=== PATIENT | female | born 1995 | race Caucasian/White ===

== ENCOUNTER 2017-09-18 09:33 | Emergency (ER) | payer OTHER, SELFPAY ==
[2017-09-18 09:56] LABS: Bilirubin Negative (Negative); Blood, Urine Negative (Negative); Glucose, Urine (Dipstick) Negative (Negative); Ketone, Urine Negative (Negative); Nitrite Negative (Negative); Protein, Urine (Dipstick) Negative (Neg-Trace); Urobilinogen 0.2 mg/dL (0.2-1.0)
== END 2017-09-18 13:17 | disposition home or self-care (01) ==
LOC: ERS 09:33
DX: K59.00 Constipation, unspecified (principal); Z32.02 Encounter for pregnancy test, result negative; Z71.6 Tobacco abuse counseling; F17.210 Nicotine dependence, cigarettes, uncomplicated
CPT/HCPCS: 81003; 81025; 99406

== ENCOUNTER 2018-03-26 19:59 | Emergency (ER) | payer SELFPAY ==
[2018-03-26] MEDS ORDERED: Dexamethasone 4 mg/ml Vial ONE (21:28)
[2018-03-26] MEDS ORDERED: Metoclopramide HCl 10 MG/2 ML VIAL ONE (21:28)
[2018-03-26] MEDS ORDERED: Ketorolac Tromethamine 30 MG/ML VIAL ONE (21:28)
[2018-03-26] MEDS ORDERED: diphenhydrAMINE 50 MG/ML VIAL ONE (21:33)
== END 2018-03-26 23:01 | disposition home or self-care (01) ==
LOC: ERS 19:59
DX: R51 Headache (principal); F17.210 Nicotine dependence, cigarettes, uncomplicated
CPT/HCPCS: 96365; 96375; J1100; J1200; J1885; J2765

== ENCOUNTER 2018-06-13 12:58 | Inpatient (IN) | payer SELFPAY ==
[~2018-06-13 12:58] MED LIST: ISOVUE-370 76%-LOCM 1 ML ONE
[2018-06-13 13:28] LABS: #Eosinphils 0.5 thou/uL (0.0-0.7); #Monocytes 1.2 thou/uL (0.11-0.59); #Neutrophils 11.9 thou/uL (1.40-6.50); %Basophils 0.2 % (0.0-1.0); %Eosinophils 2.9 % (0.0-10.0); %Lymphocytes 12.6 % (21.0-51.0); %Monocytes 7.6 % (0.0-10.0); %Neutrophils 76.7 % (42.0-75.0); Hemoglobin 13.7 g/dL (12.0-16.0); Mean Corpuscular HGB CONC 32.3 g/dL (32.0-36.0); Mean Corpuscular Hemoglobin 27.3 pg (27.0-31.0); Mean Corpuscular Volume 84.7 fL (78.0-98.0); Mean Platelet Volume 6.9 fL (7.4-10.4); Platelet Count 386 thou/uL (130-400); RBC Distribution Width 12.9 % (11.5-14.5); Red Blood Cell (RBC) Count 5.03 mill/uL (4.20-5.40); White Blood Cell (WBC) Count 15.5 thou/uL (4.8-10.8)
[2018-06-13] MEDS ORDERED: methylPREDNISolone Sod Succ/PF 125 MG/2 ML VIAL ONE (13:30)
[2018-06-13 13:41] LABS: ALT (SGPT) 41 U/L (8-55); AST (SGOT) 24 U/L (5-34); Alkaline Phosphatase 107 U/L (40-150); Anion Gap 12 mmol/L (10-20); BUN (Urea Nitrogen) 9 mg/dL (7.0-18.7); Bilirubin, Total 0.2 mg/dL (0.2-1.2); CK (CPK) 71 U/L (29-168); Calc. Creatinine Clearance 0 mL/min (70-130); Calcium 9.5 mg/dL (7.8-10.44); Carbon Dioxide 25 mmol/L (22-29); Chloride 105 mmol/L (98-107); Estimated GFR-MDRD Greater than 90; Globulin 3.8 g/dL (2.4-3.5); Glucose 107 mg/dL (70-105); Potassium 4.1 mmol/L (3.5-5.1); Protein, Total 7.8 g/dL (6.0-8.3); Sodium 138 mmol/L (136-145)
[2018-06-13 13:46] LABS: CKMB 1.1 ng/mL (0-6.6); Troponin I Less than 0.010 ng/mL (< 0.028)
[2018-06-13] MEDS ORDERED: Azithromycin 500 MG VIAL ONE (14:15)
[2018-06-13 14:23] LABS: HIV (1/2) Antibody/Antigen Non-Reactive (NonReactive); HIV 1/2 INDEX 0.06 S/CO (<1.00)
[2018-06-13 14:42] LABS: BHCG - Serum Negative (NEGATIVE); Pregs Control Background? CLEAR/WHITE (CLR/WHITE); Pregs Control Bar Appear? YES (CONTROL BAR)
--- NOTE | 2018-06-13 14:48 | RAD ---
PORTABLE CHEST: HISTORY: Cough. FINDINGS: Evaluation of the lungs is limited due to poor inspiration and soft tissue attenuation. The lungs ap pear clear as visualized. Cardiomediastinum unremarkable. IMPRESSION: No acute process seen on portable exam. POS: [facility]
[2018-06-13] MEDS ORDERED: cefTRIAXone\\ROCEPHIN 1 GM VIAL ONE (15:46)
--- NOTE | 2018-06-13 15:47 | CT ---
CT ANGIOGRAM OF THE CHEST 06/13/18 HISTORY: Elevated D-dimer. Shortness of breath. Chest pain. Patient does smoke. COMPARISON: None. TECHNIQUE: CT angiogram of the chest is performed in the axial plane. Three dimensional reformatted images are s ubmitted for interpretation. FINDINGS: Patchy interstitial and alveolar opacities in the left upper lobe, medial left lower lobe. Adequate a eration without evidence of consolidation in the right lung. Nonspecific linear opacity and nodule in the right lung apex. The nodule component measures 6 mm. Trachea and central bronchi are patent. No pleural effusion or pneumothorax. No mediastinal mass, lymphadenopathy, or hematoma. Heart size is within normal limits. No pericardial effusion. The descending thoracic aorta and abdominal aorta have a normal caliber. No periaortic fat stranding. The visualized upper solid organs are unremarkable. Suboptimal evaluation of the pulmonary arterial system due to poor timing of contrast bolus and due t o motion degradation. No evidence of a central filling defect to suggest thromboembolism. Evaluation of the lobar, segmental and subsegmental arteries is markedly limited. IMPRESSION: 1. Markedly limited evaluation due to timing of bolus as well as motion degradation. No obvious central PE. 2. Limited evaluation of the aorta. Overall caliber is within normal limits. No evidence of eveline aortic fat stranding. 3. Patchy opacities in the left lung which may represent areas of infiltrates. Continued surveil sammie is recommended. 4. 6 mm nodule opacity in the right upper lobe. Followup CT in one year. POS: [facility]
[2018-06-13] MEDS ORDERED: Acetaminophen 650 MG Suppository PR PRN (18:08)
[2018-06-13] MEDS ORDERED: Bisacodyl 5 MG TAB PO PRN (18:08)
[2018-06-13] MEDS ORDERED: Ondansetron HCl/PF 4 MG/2 ML Vial IVP PRN (18:24)
[2018-06-13] MEDS ORDERED: Sodium Chloride 0.9% 1,000 ML IV SCH (18:24)
[2018-06-13] MEDS ORDERED: Ondansetron ODT 4 MG TAB SL PRN (18:24)
[2018-06-13] MEDS: Acetaminophen 325 MG TAB PO PRN (18:35)
--- NOTE | 2018-06-13 19:01 | HP ---
PRIMARY CARE PROVIDER: None. CHIEF COMPLAINT: Shortness of breath. HISTORY OF PRESENT ILLNESS: Ms. Elena is a pleasant 23-year-old lady who was seen at [facility] on 06/13/2018. She reports that she has no medical problems. She denies any sick contacts. She developed shortness of breath last night. The shortness of breath was accompanied by cough. The cough is productive of yellow sputum. She felt feverish at home. She also reports nausea at home. She denies any vomitin g or diarrhea. She also reports pain over her left upper back, but is unable to characterize it furt her. REVIEW OF SYSTEMS: All other systems reviewed and found to be negative. PAST MEDICAL HISTORY: None. PAST SURGICAL HISTORY: None. SOCIAL HISTORY: The patient denies alcohol use or recreational drug use. She smokes half a pack of cigarettes a day. FAMILY HISTORY: Myocardial infarction in her father in his 50s. ALLERGIES: No known drug allergies. CURRENT MEDICATIONS: None. PHYSICAL EXAMINATION: GENERAL: On examination, Ms. Elena is awake and alert, not in acute distress. She is obese. VITAL SIGNS: Blood pressure is 129/92, pulse 128, respiratory rate 17 and oxygen saturation 95% on r oom air. T-max in the emergency room was 101.3 degrees Fahrenheit. EYES: No scleral icterus. No conjunctival pallor. ENT: Moist mucosal membranes, no oropharyngeal erythema or exudates. NECK: Supple, nontender, trachea is midline. RESPIRATORY: Accessory muscles of breathing are not active. Chest wall movements are symmetric bila terally. LUNGS: Examination reveals left-sided bronchial breathing. CARDIOVASCULAR: S1 and S2 are heard, tachycardic and regular. Peripheral pulses palpable. No carot id bruit, no pericardial rub. ABDOMEN: Soft, nontender, bowel sounds are heard, no hepatomegaly, no splenomegaly. NEUROLOGIC: Cranial nerves II-XII are intact. Deep tendon reflexes are 2+. MUSCULOSKELETAL: Power is 5/5 in all 4 extremities. SKIN: No rashes or subcutaneous nodules. LYMPHATIC: No cervical lymphadenopathy. PSYCHIATRIC: Normal mood, normal affect, patient is oriented to person, place, and time. IMAGING DATA AND LABORATORY DATA: Ms. Elena's labs and investigations were reviewed. I reviewed her electrocardiogram, which shows sinus tachycardia, no ST changes to suggest an acute coronary syndrome . I also reviewed her chest x-ray, which does not show any pulmonary infiltrates. She also had CT a ngiogram of the chest, which was a suboptimal study. There was no evidence of a central filling defe ct. She also had patchy opacities in the left lung which may represent areas of infiltrates. She al so has a 6 mm nodular opacity in the right lower lobe. Radiologist recommends follow up CT in 1 year . She has leukocytosis with 15,500 white cells, of which 76.7% are neutrophils, normal hemoglobin an d normal platelet count, elevated D-dimer of 0.49, unremarkable comprehensive metabolic profile, norm al troponin I, negative serum test and nonreactive HIV 1 and 2 antigen and antibody. ASSESSMENT AND PLAN: Mr. Elena is a pleasant 23-year-old lady who was seen at [facility] on 06/13/2018. Her problem list includes: 1. Sepsis: Ms. Elena is presenting with sepsis, most likely secondary to pneumonia. She will be adm itted to the hospital for further management including intravenous fluids and antibiotics. 2. Pneumonia: She will be treated with intravenous ceftriaxone and azithromycin. I will follow blo od cultures and adjust antibiotics as needed. 3. Sinus tachycardia: No evidence of pulmonary embolism, most likely secondary to sepsis. We will continue to monitor vital signs. 4. Tobacco use: The patient has been counseled regarding tobacco cessation. She declined nicotine replacement therapy. LEVEL OF RISK: High. LEVEL OF COMPLEXITY: High.
[2018-06-13 19:02] VITALS: BMI 64.0
[2018-06-13] MEDS ORDERED: diphenhydrAMINE 25 MG CAP PO PRN (22:03)
[2018-06-13] MEDS: Sodium Chloride 0.9% 1,000 ML IV SCH (22:20)
[2018-06-14 06:05] LABS: #Eosinphils 0.1 thou/uL (0.0-0.7); #Lymphocytes 1.4 thou/uL (1.20-3.40); #Monocytes 0.9 thou/uL (0.11-0.59); #Neutrophils 12.8 thou/uL (1.40-6.50); %Basophils 0.1 % (0.0-1.0); %Eosinophils 0.6 % (0.0-10.0); %Lymphocytes 9.3 % (21.0-51.0); %Monocytes 6.1 % (0.0-10.0); Hemoglobin 13.4 g/dL (12.0-16.0); Mean Corpuscular HGB CONC 31.8 g/dL (32.0-36.0); Mean Corpuscular Hemoglobin 26.8 pg (27.0-31.0); Mean Corpuscular Volume 84.2 fL (78.0-98.0); Mean Platelet Volume 6.8 fL (7.4-10.4); Platelet Count 339 thou/uL (130-400); RBC Distribution Width 13.5 % (11.5-14.5); Red Blood Cell (RBC) Count 5.01 mill/uL (4.20-5.40); White Blood Cell (WBC) Count 15.3 thou/uL (4.8-10.8)
[2018-06-14 06:13] LABS: Anion Gap 11 mmol/L (10-20); BUN (Urea Nitrogen) 9 mg/dL (7.0-18.7); Calc. Creatinine Clearance 275 mL/min (70-130); Calcium 9.3 mg/dL (7.8-10.44); Carbon Dioxide 24 mmol/L (22-29); Chloride 109 mmol/L (98-107); Estimated GFR-MDRD Greater than 90; Glucose 194 mg/dL (70-105); Potassium 4.3 mmol/L (3.5-5.1); Sodium 140 mmol/L (136-145)
[2018-06-14] MEDS: Sodium Chloride 0.9% 1,000 ML IV SCH ×3 (06:30→23:36)
[2018-06-14] MEDS: Benzonatate 100 MG CAP PO PRN ×3 (08:30→21:49)
[2018-06-14] MEDS: Enoxaparin Sodium 40 MG/0.4 ML SYRINGE SC SCH (08:31)
--- NOTE | 2018-06-14 12:59 | PDOC.PN ---
- Subjective Encounter Start Date: 06/14/18 Encounter Start Time: 07:20 Pt seen for followup re: pneumonia. Reports cough, sputum. - Objective MAR Reviewed: Yes Vital Signs & Weight: Vital Signs (12 hours) Temp Pulse Resp BP BP Pulse Ox 06/14/18 11:30 98.1 F 103 H 22 H 142/94 H 97 06/14/18 09:09 95 06/14/18 09:07 109 H 40 H 06/14/18 07:45 98.2 F 106 H 24 H 140/91 H 96 06/14/18 04:00 98.4 F 110 H 22 H 169/98 H 94 L Weight Weight 327 lb 9.6 oz I&O: 06/13/18 06/14/18 06/15/18 06:59 06:59 06:59 Intake Total 1187 Output Total 400 Balance 787 Result Diagrams: 06/14/18 05:42 06/14/18 05:42 EKG Reviewed by me: Yes (Tele: sinus tachycardia) Phys Exam - Physical Examination morbid obesity HEENT: moist MMs, sclera anicteric, oral pharynx no lesions, 2+ tonsils Neck: no nodes, no JVD, supple, full ROM Respiratory: no rales, no rhonchi, wheezing present, clear to auscultation bilateral Cardiovascular: no rub S1, S2, tachy, reg Gastrointestinal: soft, non-tender, positive bowel sounds distention Neurological: moves all 4 limbs Psychiatric: normal affect, A&O x 3 Dx/Plan (1) Pneumonia Code(s): J18.9 - PNEUMONIA, UNSPECIFIED ORGANISM Status: Acute Comment: Continue IV ceftriaxone, azithromycin and PRN DuoNebs. Add Tessalon. (2) Sinus tachycardia Code(s): R00.0 - TACHYCARDIA, UNSPECIFIED Status: Acute Comment: likely due to pneumonia/hypoxia. No large PE on CTA. Check TSH in AM. (3) Leucocytosis Code(s): D72.829 - ELEVATED WHITE BLOOD CELL COUNT, UNSPECIFIED Status: Acute Comment: Improving (4) Tobacco abuse Code(s): Z72.0 - TOBACCO USE Status: Chronic Comment: pt counseled re: tobacco cessation - Plan continue antibiotics, out of bed/ambulate, DVT proph w/lovenox * . Review of Systems - Review of Systems Constitutional: malaise. negative: fever, chills, sweats, weakness Respiratory: Cough, SOB with Excertion, Sputum. negative: Dry, Shortness of Breath, Hemoptysis, Pleuritic Pain, Wheezing Cardiovascular: negative: chest pain, palpitations, orthopnea, paroxysmal nocturnal dyspnea, edema, light headedness Gastrointestinal: negative: Nausea, Vomiting, Abdominal Pain, Diarrhea, Constipation, Melena, Hematochezia Genitourinary: negative: Dysuria, Frequency, Incontinence, Hematuria, Retention Skin: negative: Rash, Lesions, Stan, Bruising - Medications/Allergies Allergies/Adverse Reactions: Allergies Allergy/AdvReac Type Severity Reaction Status Date / Time No Known Drug Allergies Allergy Verified 06/13/18 20:39 Medications: Current Medications Acetaminophen (Tylenol) 650 mg PO Q4H PRN PRN Reason: Headache/Fever or Pain Last Admin: 06/13/18 18:35 Dose: 650 mg Acetaminophen (Tylenol) 650 mg RI Q4H PRN PRN Reason: Headache/Fever or Pain Albuterol/Ipratropium (Duoneb) 3 ml NEB Q4H PRN PRN Reason: SOB &/or Wheezing Last Admin: 06/14/18 09:07 Dose: 3 ml Benzonatate (Tessalon) 100 mg PO TID PRN PRN Reason: Cough Last Admin: 06/14/18 08:30 Dose: 100 mg Bisacodyl (Dulcolax) 10 mg PO DAILYPRN PRN PRN Reason: Constipation Diphenhydramine HCl (Benadryl) 50 mg PO HSPRN PRN PRN Reason: Itching & Insomnia Last Admin: 06/13/18 22:20 Dose: 50 mg Enoxaparin Sodium (Lovenox) 40 mg SC 09 [facility]LE Last Admin: 06/14/18 08:31 Dose: 40 mg Azithromycin 500 mg/ Sodium (Chloride) 250 mls @ 250 mls/hr IVPB Q24HR [facility] Ceftriaxone Sodium 1 gm/ (Sodium Chloride) 100 mls @ 200 mls/hr IVPB Q24HR [facility] Sodium Chloride (Normal Saline 0.9%) 1,000 mls @ 100 mls/hr IV .Q10H [facility] Last Admin: 06/14/18 06:47 Dose: 1,000 mls Sodium Chloride (Flush - Normal Saline) 10 ml IVF Q12HR [facility] Last Admin: 06/14/18 08:30 Dose: Not Given Sodium Chloride (Flush - Normal Saline) 10 ml IVF PRN PRN PRN Reason: Saline Flush
[2018-06-14] MEDS: Azithromycin 500 MG in Sodium Chloride 0.9% 250 ML 250 ML IVPB SCH (13:35)
[2018-06-14] MEDS ORDERED: cefTRIAXone\\ROCEPHIN 1 GM in Sodium Chloride 0.9% 100 ML IVPB SCH (16:00)
[2018-06-14] MEDS: Acetaminophen 325 MG TAB PO PRN (16:32)
[2018-06-15] MEDS: Acetaminophen 325 MG TAB PO PRN (04:44)
[2018-06-15 06:11] LABS: #Eosinphils 0.6 thou/uL (0.0-0.7); #Lymphocytes 2.6 thou/uL (1.20-3.40); #Monocytes 0.9 thou/uL (0.11-0.59); #Neutrophils 6.6 thou/uL (1.40-6.50); %Basophils 0.5 % (0.0-1.0); %Eosinophils 5.8 % (0.0-10.0); %Neutrophils 61.7 % (42.0-75.0); Hemoglobin 11.9 g/dL (12.0-16.0); Mean Corpuscular HGB CONC 31.7 g/dL (32.0-36.0); Mean Corpuscular Hemoglobin 27.1 pg (27.0-31.0); Mean Corpuscular Volume 85.5 fL (78.0-98.0); Mean Platelet Volume 6.7 fL (7.4-10.4); Platelet Count 315 thou/uL (130-400); RBC Distribution Width 13.3 % (11.5-14.5); White Blood Cell (WBC) Count 10.7 thou/uL (4.8-10.8)
[2018-06-15 06:21] LABS: Anion Gap 9 mmol/L (10-20); BUN (Urea Nitrogen) 10 mg/dL (7.0-18.7); Calc. Creatinine Clearance 290 mL/min (70-130); Calcium 8.5 mg/dL (7.8-10.44); Carbon Dioxide 26 mmol/L (22-29); Chloride 107 mmol/L (98-107); Estimated GFR-MDRD Greater than 90; Glucose 102 mg/dL (70-105); Potassium 4.2 mmol/L (3.5-5.1); Sodium 138 mmol/L (136-145)
[2018-06-15] MEDS: Sodium Chloride 0.9% 1,000 ML IV SCH (09:12)
[2018-06-15] MEDS: Enoxaparin Sodium 40 MG/0.4 ML SYRINGE SC SCH (09:20)
[2018-06-15 11:37] VITALS: BP 135/79; TEMP 98.6
[2018-06-15] MEDS: Azithromycin 500 MG in Sodium Chloride 0.9% 250 ML 250 ML IVPB SCH (14:08)
--- NOTE | 2018-06-15 16:50 | PDOC.PN ---
- Subjective Encounter Start Date: 06/15/18 Encounter Start Time: 07:20 Pt seen for followup re: pneumonia. Feels better. No nausea or vomiting. No fevers. Cough better, still has sputum. - Objective MAR Reviewed: Yes Vital Signs & Weight: Vital Signs (12 hours) Temp Pulse Resp BP BP Pulse Ox 06/15/18 13:10 95 18 06/15/18 11:35 98.6 F 98 32 H 135/79 98 06/15/18 08:05 100 06/15/18 08:01 99 28 H 06/15/18 07:20 98.5 F 102 H 24 H 130/78 96 Weight Weight 331 lb I&O: 06/14/18 06/15/18 06/16/18 06:59 06:59 06:59 Intake Total 1187 4090 Output Total 400 1450 Balance 787 2640 Result Diagrams: 06/15/18 05:44 06/15/18 05:44 EKG Reviewed by me: Yes (Tele: NSR) Phys Exam - Physical Examination Morbid obesity HEENT: moist MMs, sclera anicteric, oral pharynx no lesions, 2+ tonsils Neck: no nodes, no JVD, supple, full ROM Bibasal crackles Cardiovascular: RRR, no rub S1, S2 Gastrointestinal: soft, non-tender, positive bowel sounds distended Neurological: moves all 4 limbs Psychiatric: normal affect, A&O x 3 Dx/Plan (1) Pneumonia Code(s): J18.9 - PNEUMONIA, UNSPECIFIED ORGANISM Status: Acute Comment: On IV ceftriaxone, azithromycin and PRN DuoNebs, will continue. (2) Tobacco abuse Code(s): Z72.0 - TOBACCO USE Status: Chronic Comment: pt counseled re: tobacco cessation (3) Leucocytosis Code(s): D72.829 - ELEVATED WHITE BLOOD CELL COUNT, UNSPECIFIED Status: Resolved (4) Sinus tachycardia Code(s): R00.0 - TACHYCARDIA, UNSPECIFIED Status: Resolved Comment: TSH normal - Plan continue antibiotics, out of bed/ambulate * . Review of Systems - Review of Systems Constitutional: negative: fever, chills, sweats, weakness, malaise Respiratory: Cough, Sputum. negative: Dry, Shortness of Breath, Hemoptysis, SOB with Excertion, Pleuritic Pain, Wheezing Cardiovascular: negative: chest pain, palpitations, orthopnea, paroxysmal nocturnal dyspnea, edema, light headedness Gastrointestinal: negative: Nausea, Vomiting, Abdominal Pain, Diarrhea, Constipation, Melena, Hematochezia Skin: negative: Rash, Lesions, Stan, Bruising Neurological: negative: Weakness, Numbness, Incoordination, Change in Speech, Confusion, Seizures - Medications/Allergies Allergies/Adverse Reactions: Allergies Allergy/AdvReac Type Severity Reaction Status Date / Time No Known Drug Allergies Allergy Verified 06/13/18 20:39
--- NOTE | 2018-06-15 23:32 | DIS ---
DATE OF ADMISSION: 06/13/2018 DATE OF DISCHARGE: Patient left against medical advice on 06/15/2018. PRIMARY CARE PROVIDER: None. DISCHARGE DIAGNOSES: 1. Sepsis. 2. Pneumonia. HOSPITAL COURSE: Ms. Elena is a pleasant, 23-year-old lady, who was admitted to [facility] on 06/13/2018 for sepsis secondary to pneumonia. Please refer to my history and physica l note dated 06/13/2018 for further details. She was treated with intravenous antibiotics and bronch odilators. She was showing clinical improvement, but was still tachypneic on 06/15/2018. She did no t wish to stay in the hospital. I discussed with her the need for at least one more day worth of hos pitalization. She wished to leave against medical advice. I discussed the risks of leaving against medical advice including worsening of pneumonia and even potentially . She made an informed dec ision to leave against medical advice.
== END 2018-06-15 15:29 | disposition left against medical advice (07) | DRG 871 ==
LOC: ERS 12:58 → 2NO 16:00
PROVIDERS: ADMIT Internal Medicine; ATTEND Internal Medicine
DX: A41.9 Sepsis, unspecified organism (principal); J18.9 Pneumonia, unspecified organism; Z68.44 Body mass index [BMI] 60.0-69.9, adult; F17.210 Nicotine dependence, cigarettes, uncomplicated; E66.01 Morbid (severe) obesity due to excess calories; Z53.21 Procedure and treatment not carried out due to patient leaving prior to being seen by health care provider
CPT/HCPCS: 36415; 71045; 71275; 80048; 80053; 82553; 83605; 84443; 84484; 84703; 85025; 85379; 87040; 87389; 87804; 93005; 94640; 96361; 96365; 96367; 96375; A4216; J0456; J0696; J1650; J2930; J7050; J7620

== ENCOUNTER 2018-09-27 03:41 | Emergency (ER) | payer SELFPAY ==
[2018-09-27] MEDS ORDERED: Morphine 4 MG/ML VIAL ONE ×2 (04:57→06:27)
[2018-09-27] MEDS ORDERED: Ketorolac Tromethamine 30 MG/ML VIAL ONE (04:58)
[2018-09-27 05:34] LABS: Bilirubin Negative (Negative); Blood, Urine Small (Negative); Clarity TURBID (Clear); Glucose, Urine (Dipstick) Negative (Negative); Leukocyte Trace (Negative); Nitrite Negative (Negative); Protein, Urine (Dipstick) Negative (Neg-Trace); Specific Gravity, Urine 1.019 (1.002-1.036); Urobilinogen 0.2 mg/dL (0.2-1.0); pH, Urine 6.5 (5.0-9.0)
[2018-09-27 05:37] LABS: Bacteria/HPF 4+ HPF (None Seen); Hyaline Casts/LPF 0-3 HYALINE CAST LPF (0-3 Hyaline); Pathc Cast-AUWi Flag 0.43 (0-2.49); Squamous Epithelial 21-50 HPF (0-3)
[2018-09-27 05:56] LABS: Pregnancy Test - Urine (BHCG) Negative (Negative); Pregu Control Background? CLEAR/WHITE (CLR/WHITE); Pregu Control Bar Appear? YES (CONTROL BAR); Specific Gravity 1.019 (1.002-1.036)
[2018-09-27 06:16] LABS: #Basophils 0.1 thou/uL (0.0-0.2); #Eosinphils 0.3 thou/uL (0.0-0.7); #Lymphocytes 2.5 thou/uL (1.20-3.40); #Monocytes 0.7 thou/uL (0.11-0.59); #Neutrophils 6.4 thou/uL (1.40-6.50); %Basophils 0.9 % (0.0-1.0); %Lymphocytes 24.9 % (21.0-51.0); %Monocytes 7.3 % (0.0-10.0); %Neutrophils 63.9 % (42.0-75.0); Hemoglobin 14.3 g/dL (12.0-16.0); Mean Corpuscular HGB CONC 33.1 g/dL (32.0-36.0); Mean Corpuscular Hemoglobin 27.6 pg (27.0-31.0); Mean Corpuscular Volume 83.1 fL (78.0-98.0); Mean Platelet Volume 6.8 fL (7.4-10.4); Platelet Count 434 thou/uL (130-400); RBC Distribution Width 13.5 % (11.5-14.5); Red Blood Cell (RBC) Count 5.17 mill/uL (4.20-5.40)
[2018-09-27 06:22] LABS: ALT (SGPT) 34 U/L (8-55); AST (SGOT) 19 U/L (5-34); Alkaline Phosphatase 100 U/L (40-150); Anion Gap 13 mmol/L (10-20); BUN (Urea Nitrogen) 12 mg/dL (7.0-18.7); Bilirubin, Total 0.2 mg/dL (0.2-1.2); Calc. Creatinine Clearance 0 mL/min (70-130); Calcium 9.7 mg/dL (7.8-10.44); Carbon Dioxide 27 mmol/L (22-29); Chloride 104 mmol/L (98-107); Estimated GFR-MDRD 80; Globulin 4.1 g/dL (2.4-3.5); Glucose 128 mg/dL (70-105); Lipase 51 U/L (8-78); Potassium 4.5 mmol/L (3.5-5.1); Protein, Total 8.1 g/dL (6.0-8.3); Sodium 139 mmol/L (136-145)
[2018-09-27] MEDS ORDERED: cefTRIAXone\\ROCEPHIN 1 GM VIAL ONE (06:27)
--- NOTE | 2018-09-27 08:45 | CT ---
PRELIMINARY REPORT/[facility]/EMERGENTY AFTER-HOURS PROCEDURE CT Abdomen and Pelvis Without Contrast EXAM DATE/TIME: 09/27/2018 5:17 AM CLINICAL HISTORY: 23 years old, female; Pain; Abdominal pain; Generalized; Patient HX: F 23 presents to ed with rlq abd pain. PT states that she had a uti 3 days ago (increased urination, sharp pains, denies vaginal d/c) . No HX of appendicitis. Lmp 1 year ago. Denies appetite changes. Pmh of kidney stones. Reports amoxil allergy. TECHNIQUE: Axial computed tomography images of the abdomen and pelvis without contrast. Coronal reformatted images were created and reviewed. COMPARISON: No relevant prior studies available. FINDINGS: Lower thorax: No acute findings. ABDOMEN: Liver: Normal. No mass. Gallbladder and bile ducts: Normal. No calcified stones. No ductal dilation. Pancreas: Normal. No ductal dilation. Spleen: Normal. No splenomegaly. Adrenals: Normal. No mass. Kidneys and ureters: Mild right obstructive uropathy, secondary to a 4 x 3 mm calculus within the int ernal bladder orifice of the distal right ureter seen on image 100 of series 2. Multiple small nonobs tructing calculi are additionally present in both kidneys. Stomach and bowel: Normal. No obstruction. No mucosal thickening. Appendix: No evidence of appendicitis. PELVIS: Bladder: Unremarkable as visualized. Reproductive: Unremarkable as visualized. ABDOMEN and PELVIS: Intraperitoneal space: Normal. No free air. No significant fluid collection. Bones/joints: No acute fracture. No dislocation. Soft tissues: Unremarkable. Vasculature: Normal. No abdominal aortic aneurysm. Lymph nodes: Normal. No enlarged lymph nodes. IMPRESSION: 1. Mild right obstructive uropathy, secondary to a 4 x 3 mm calculus within the internal bladder orif ice of the distal right ureter, seen on image 100 of series 2. 2. Multiple small nonobstructing calculi are additionally present in both kidneys. The remainder of t he abdomen pelvis is normal. Thank you for allowing us to participate in the care of your patient. Dictated and Authenticated by: Dov Kuhn MD 09/27/2018 7:36 AM Central Time ([place] & [place]) FINAL REPORT CT ABDOMEN AND PELVIS WITHOUT CONTRAST: Date: 09/27/18 HISTORY: Abdominal pain. Right lower quadrant pain. Urinary tract infection. COMPARISON: None. FINDINGS/IMPRESSION: Findings and impression are concordant with the preliminary report by Tawanna. The calculus size may mor e likely measure 2.0 x 2.0 mm. POS: [facility]
== END 2018-09-27 08:43 | disposition home or self-care (01) ==
LOC: ERS 03:41
DX: N12 Tubulo-interstitial nephritis, not specified as acute or chronic (principal); N39.0 Urinary tract infection, site not specified; F17.210 Nicotine dependence, cigarettes, uncomplicated
CPT/HCPCS: 36415; 74176; 80053; 81003; 81015; 81025; 83690; 85025; 96365; 96366; 96375; J0696; J1885; J2270

== ENCOUNTER 2018-12-25 13:57 | Outpatient (CLI) | payer BC ==
--- NOTE | 2018-12-25 14:42 | RAD ---
TWO VIEW CHEST: History: Bronchitis. FINDINGS: The lungs appear clear with no infiltrate identified. Heart and mediastinum unremarkable. Osseous str uctures unremarkable. IMPRESSION: Unremarkable chest. POS: [facility]
== END 2018-12-25 13:58 | disposition home or self-care (01) ==
LOC: SCSRAD 13:57
PROVIDERS: ATTEND Nurse Practitioner Family
DX: J40 Bronchitis, not specified as acute or chronic (principal)
CPT/HCPCS: 71046

== ENCOUNTER 2019-09-25 08:52 | Emergency (ER) | payer BC ==
[2019-09-25 10:04] LABS: Bacteria/HPF None Seen HPF (None Seen); Bilirubin Negative (Negative); Blood, Urine 2+ (Negative); Clarity Clear (Clear); Glucose, Urine (Dipstick) Normal (Negative); Leukocyte Negative Leu/uL (Negative); Nitrite Negative (Negative); Protein, Urine (Dipstick) Negative (Neg-Trace); RBC/HPF 0-3 HPF (0-3); Squamous Epithelial 0-3 HPF (0-3); Urobilinogen Normal mg/dL (Less than 2); WBC/HPF 0-3 HPF (0-3)
[2019-09-25 10:10] LABS: Pregnancy Test - Urine (BHCG) Negative (Negative); Pregu Control Background? CLEAR/WHITE (CLR/WHITE); Pregu Control Bar Appear? YES (CONTROL BAR); Specific Gravity 1.004 (1.002-1.036)
--- NOTE | 2019-09-25 11:06 | CT ---
CT ABDOMEN AND PELVIS WITHOUT CONTRAST STONE PROTOCOL: HISTORY: Flank pain. COMPARISON: CT abdomen and pelvis, stone protocol, 09/27/2018. FINDINGS: The lung bases are clear. No pericardial effusion. Diffuse hepatic steatosis. Severe right hydroureteronephrosis due to a partially obstructing right di stal ureteral calculus, measuring 3 x 4 mm, 1 cm from the ureterovesical junction. More proximal to t his, near the adnexa, is another calculus, measuring 5 x 4 x 3 mm, approximately 5 cm from the ureter ovesical junction. The left collecting system is without hydroureteronephrosis. Numerous nonobstructive calculi within t he left renal collecting system, measuring up to 3 mm, inferior pole left kidney. There are a few 2 t o 3 mm calculi within the inferior pole right renal collecting system. The aortoiliac contour is nonaneurysmal. No acute osseous abnormality. The appendix is visualized and is normal. IMPRESSION: Partially obstructive calculi within the right ureter, as described, one 5 cm from the ureteropelvic junction and one 1 cm from the right ureterovesical junction. POS: [facility]
[2019-09-25 11:11] LABS: #Basophils 0.1 thou/uL (0.0-0.2); #Eosinphils 0.2 thou/uL (0.0-0.7); #Lymphocytes 2.7 thou/uL (1.20-3.40); #Monocytes 1.1 thou/uL (0.11-0.59); #Neutrophils 13.2 thou/uL (1.40-6.50); %Basophils 0.4 % (0.0-1.0); %Eosinophils 1.1 % (0.0-10.0); %Lymphocytes 15.6 % (21.0-51.0); %Monocytes 6.3 % (0.0-10.0); %Neutrophils 76.6 % (42.0-75.0); Hemoglobin 14.2 g/dL (12.0-16.0); Mean Corpuscular HGB CONC 32.5 g/dL (32.0-36.0); Mean Corpuscular Hemoglobin 26.9 pg (27.0-31.0); Mean Corpuscular Volume 82.8 fL (78.0-98.0); Mean Platelet Volume 7.2 fL (7.4-10.4); Platelet Count 389 thou/uL (130-400); RBC Distribution Width 13.8 % (11.5-14.5); Red Blood Cell (RBC) Count 5.29 mill/uL (4.20-5.40); White Blood Cell (WBC) Count 17.2 thou/uL (4.8-10.8)
[2019-09-25 11:12] LABS: BHCG - Serum Negative (NEGATIVE); Pregs Control Background? CLEAR/WHITE (CLR/WHITE); Pregs Control Bar Appear? YES (CONTROL BAR)
[2019-09-25 11:39] LABS: ALT (SGPT) 38 U/L (8-55); AST (SGOT) 25 U/L (5-34); Albumin 4.1 g/dL (3.5-5.0); Alkaline Phosphatase 103 U/L (40-110); Anion Gap 15 mmol/L (10-20); BUN (Urea Nitrogen) 11 mg/dL (7.0-18.7); Bilirubin, Total 0.3 mg/dL (0.2-1.2); Calc. Creatinine Clearance 0 mL/min (70-130); Calcium 9.9 mg/dL (7.8-10.44); Carbon Dioxide 21 mmol/L (22-29); Chloride 102 mmol/L (98-107); Estimated GFR-MDRD 68; Glucose 112 mg/dL (70-105); Lipase 13 U/L (8-78); Potassium 4.8 mmol/L (3.5-5.1); Protein, Total 8.1 g/dL (6.0-8.3); Sodium 133 mmol/L (136-145)
[2019-09-25] MEDS ORDERED: Ketorolac Tromethamine 30 MG/ML VIAL ONE (12:17)
== END 2019-09-25 13:37 | disposition home or self-care (01) ==
LOC: ERS 08:52
DX: N20.2 Calculus of kidney with calculus of ureter (principal); F17.210 Nicotine dependence, cigarettes, uncomplicated; Z87.442 Personal history of urinary calculi
CPT/HCPCS: 36415; 74176; 80053; 81003; 81015; 81025; 83605; 83690; 84703; 85025; 87040; 96361; 96374; J1885